=== PATIENT | male | born 1940 | race Caucasian/White ===

== ENCOUNTER 2016-03-29 15:28 | Emergency (ER) | payer OTHER ==
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
[2016-03-29 15:41] VITALS: BP 134/67; PULSE 62; RESP 16; TEMP 97.9; O2SAT 96
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
== END 2016-03-29 17:14 | disposition home or self-care (01) ==
LOC: EDUNIT#
DX: S16.1XXA Strain of muscle, fascia and tendon at neck level, initial encounter (principal); V89.9XXA Person injured in unspecified vehicle accident, initial encounter; Y92.481 Parking lot as the place of occurrence of the external cause

== ENCOUNTER 2018-03-13 19:10 | Emergency (ER) | payer OTHER ==
[2018-03-13] MEDS ORDERED: IBUPROFEN 800 MG TAB PO ONE (19:30)
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
[2018-03-13] MEDS ORDERED: DIAZEPAM 5 MG PREPACK#4 BTL TAKEHOME ONE (20:44)
[2018-03-13 20:56] VITALS: BP 174/100
== END 2018-03-13 20:56 | disposition home or self-care (01) ==
DX: S16.1XXA Strain of muscle, fascia and tendon at neck level, initial encounter (principal); V49.09XA Driver injured in collision with other motor vehicles in nontraffic accident, initial encounter; Y92.524 Gas station as the place of occurrence of the external cause; Y93.9 Activity, unspecified; Y99.9 Unspecified external cause status